=== PATIENT | female | born 1985 | race Caucasian/White ===

== ENCOUNTER 2018-12-28 20:47 | Emergency (ER) | payer OTHER ==
--- OUTSIDE RECORDS SUMMARY | 2018-12-28 20:54 | XMS REPORT | Continuity of Care Document ---
:1985 External Reference #:[id number] Author Name Zo Mitchell O.D. Address [address] [place] [address] Care Team Providers Name Role Phone Mamta Morillo NP Primary Care Physician Unavailable Payers Date Identification Numbers Payment Provider Subscriber Policy Number: [id number] [employer] Faye Jaimes Group Number: [id number] [id number] PayID: [id number] [place] [address] Advance Directives Description No Information Available Problems Active Problems Provider Date Patellar tendonitis Onset: Migraine Onset: Depressive disorder Onset: Anxiety Onset: Poor peripheral circulation Onset: Benign neoplasm of choroid Zo Mitchell O.D. Onset: 12/08/2018 Regular astigmatism Zo Mitchell O.D. Onset: 12/08/2018 Refractory migraine with aura Zo Mitchell O.D. Onset: 12/12/2015 Family History Date Family Member(s) Observation Comments Father Not Known - Adopted Mother Not Known - Adopted Social History Type Date Description Comments Sex Unknown Marital Status Single Occupation [employer] Work Status Part-Time Employment ETOH Use Occasionally consumes alcohol Tobacco Use Start: Unknown Patient has never smoked Recreational Drug Use Denies Drug Use Smoking Status Reviewed: 12/08/18 Patient has never smoked Allergies, Adverse Reactions, Alerts Description No Known Drug Allergies Medications Description No Active Medications Immunizations Description No Information Available Vital Signs Description No Information Available Results Description No Information Available Procedures Date Code Description Status 12/12/2015 94789 Determination Of Refractive State Completed 12/12/2015 25663 Est Patient Comprehensive Exam Completed 11/27/2013 82235 Determination Of Refractive State Completed 11/27/2013 69832 Est Patient Comprehensive Exam Completed 10/04/2011 93943 Determination Of Refractive State Completed 08/02/2011 23822 New Patient Comprehensive Exam Completed Encounters Description No Information Available Plan of Treatment 12/08/2018 - Zo Mitchell O.D.D31.31 Benign neoplasm of right choroidComments:You have a nevus in your right eye. This is similar to a mole on your skin. Typically this will not change, but I will monitor it.Follow up:1 Year Follow Up You can expect to have your eyes dilated at your next visit. If Dr. Mitchell orders any additional testing, it may require extra time. We recommend that you bring sunglasses, as dilation drops often make you light sensitive until they wear off. We always recommend you bring someone to drive you home if you are uncomfortable driving with your eyes dilated. If you have any questions before your next visit, feel free to call our office at .[id number] Regular astigmatism, bilateralComments:You have an astigmatism. Astigmatism is a common vision condition that happens when a person's cornea is not symmetrical. Dr. Mitchell has given you a prescription to correct for this.
[2018-12-28 21:05] VITALS: BP 121/82
[2018-12-28] MEDS ORDERED: DOXYcycline CAP(*) 100 MG PO ONE (21:28)
--- NOTE | 2018-12-28 21:28 | UC ---
Skin Complaint HPI - HPI Summary HPI Summary: Removed an engorged tick yesterday from the right flank area, with erythema at the site of the bite. Here because she would like preventative antibiotics. - History of Current Complaint Chief Complaint: UCSkin Time Seen by Provider: 12/28/18 21:20 Stated Complaint: TICK BITE Hx Obtained From: Patient Hx Last Menstrual Period: 1 week Onset/Duration: Sudden Onset Skin Exposure Onset/Duration: Days Ago - 3 Timing: Constant Onset Severity: Mild Current Severity: Mild Pain Intensity: 0 Aggravating Factor(s): Nothing Alleviating Factor(s): Nothing Associated Signs & Symptoms: Positive: Negative - Allergy/Home Medications Allergies/Adverse Reactions: Allergies Allergy/AdvReac Type Severity Reaction Status Date / Time No Known Allergies Allergy Verified 12/28/18 21:05 PMH/Surg Hx/FS Hx/Imm Hx Previously Healthy: Yes - Surgical History Surgical History: Yes Surgery Procedure, Year, and Place: APPENDECTOMY; CYSTOSCOPY - Family History Known Family History: Positive: Non-Contributory - Social History Lives: With Family Alcohol Use: None Substance Use Type: None Smoking Status (MU): Never Smoked Tobacco Review of Systems All Other Systems Reviewed And Are Negative: Yes Constitutional: Positive: Negative Skin: Positive: Negative Eyes: Positive: Negative ENT: Positive: Negative Respiratory: Positive: Negative Cardiovascular: Positive: Negative Gastrointestinal: Positive: Negative Neurological: Positive: Negative Psychological: Positive: Anxious Is Patient Immunocompromised?: No Physical Exam Triage Information Reviewed: Yes Completion Of Physical Exam Limited Due To: Other - moderately confrontational regarding desire for antibiotics because of tick bite. Exam limited to assessment of the bite Appearance: Well-Appearing, No Pain Distress Vital Signs: Initial Vital Signs Temp 99.3 F 12/28/18 21:01 Pulse 61 12/28/18 21:01 Resp 16 12/28/18 21:01 BP 121/82 12/28/18 21:01 Pulse Ox 99 12/28/18 21:01 Eye Exam: Normal Respiratory Exam: Normal Skin Exam: Other - 4 mm area of induration on the right flank with 1.5 cm area of faint erythema. Course/Dx - Course Course Of Treatment: doxycycline single dose 200mg given for prophylaxis. - Differential Diagnoses - Skin Complaint Differential Diagnoses: Other - tick bite - Diagnoses Provider Diagnosis: Tick bite Discharge - Sign-Out/Discharge Documenting (check all that apply): Patient Departure All imaging exams completed and their final reports reviewed: No Studies - Discharge Plan Condition: Stable Disposition: HOME Patient Education Materials: Tick Bite (ED) Referrals: Xuan Christine MD [Primary Care Provider] - Additional Instructions: Single dose preventative dose of doxycycline was given today, which has an 80% success rate of stopping Lyme should the tick have been infected with Borrelia. Over the next weeks, monitor the site for expanding rash, as well as other possible symptoms such as fever, joint pains, headache. - Billing Disposition and Condition Condition: STABLE Disposition: Home
== END 2018-12-28 21:40 | disposition home or self-care (01) ==
LOC: UCEAST 20:47
DX: S30.861A Insect bite (nonvenomous) of abdominal wall, initial encounter (principal); W57.XXXA Bitten or stung by nonvenomous insect and other nonvenomous arthropods, initial encounter; Y92.9 Unspecified place or not applicable
CPT/HCPCS: 99211; A9270-GY; G0463